=== PATIENT | male | born 1935 | race African-American/Black ===

== ENCOUNTER 2018-10-13 02:09 | Inpatient (IN) | payer MEDICARE, OTHER ==
[~2018-10-13] VITALS: Ht 182.9 cm; Wt 79.4 kg
[2018-10-13 02:52] LABS: BASOPHILS % 0.3 % (0.0-2.0); HEMATOCRIT. 27.8 % (42.0-52.0); HEMOGLOBIN. 9.3 g/dL (14.0-18.0); LYMPHOCYTES % 9.9 % (20.0-50.0); MEAN CORPUSCULAR HEMOGLOBIN 29.7 pg (28.0-32.0); MONOCYTES % 11.3 % (2.0-8.0); NEUTROPHILS % 78.5 % (40.0-76.0); PLATELET 131 x1000/uL (130-400); RED BLOOD CELL COUNT 3.13 mill/uL (4.7-6.1)
[2018-10-13 02:54] LABS: CHLORIDE 110 mEq/L (98-107)
[2018-10-13 02:57] LABS: INR 1.2
[2018-10-13 02:59] LABS: ETHANOL BLOOD < 10 mg/dL
[2018-10-13 03:01] LABS: LDL CHOLESTEROL 47 mg/dL (5-100)
[2018-10-13] MEDS ORDERED: VANCOMYCIN 1 G PREMIX 200 ML IV SCH (03:15)
[2018-10-13] MEDS ORDERED: ASPIRIN 300MG SUPP PR SCH (03:15)
[2018-10-13] MEDS ORDERED: DEXTROSE 50% WATER 50ML SYRINGE IV ONE (03:30)
[2018-10-13] MEDS ORDERED: AZITHROMYCIN 500 MG in DEXT 5% WATER 250 ML IV SCH (03:30)
[2018-10-13] MEDS ORDERED: CEFEPIME 2,000 MG in DEXT 5% WATER 100 ML IV SCH (05:00)
[2018-10-13] MEDS ORDERED: IOHEXOL-350 100 ML BOTTLE ONE (06:25)
[2018-10-13 10:48] VITALS: BP 109/42
[2018-10-13 11:03] VITALS: BP 109/42
[2018-10-13 12:00] VITALS: BP 101/46
[2018-10-13] MEDS ORDERED: CLONIDINE 0.1MG TABLET PO PRN (12:00)
[2018-10-13] MEDS ORDERED: ONDANSETRON HCL 4MG/2ML INJ IV PRN (12:00)
[2018-10-13] MEDS ORDERED: DIPHENHYDRAMINE 50MG/ML VIAL IV PRN (12:00)
[2018-10-13] MEDS ORDERED: AMLO-78 MT (12:08)
[2018-10-13] MEDS ORDERED: ASPI-1159 MT (12:09)
[2018-10-13] MEDS ORDERED: WARF-53 MT (12:20)
[2018-10-13] MEDS ORDERED: WHEA1POW2 PO (12:20)
[2018-10-13] MEDS ORDERED: MULT-1116 MT (12:20)
[2018-10-13] MEDS ORDERED: GABA-529 MT (12:20)
[2018-10-13] MEDS ORDERED: LATA7.5D OP (12:20)
[2018-10-13] MEDS ORDERED: DORZ10DR9 EACHEYE (12:20)
[2018-10-13] MEDS ORDERED: LOVA40TA73 MT (12:20)
[2018-10-13] MEDS ORDERED: DILT30TA3 MT (12:20)
[2018-10-13] MEDS ORDERED: FERR325T6 MT (12:20)
[2018-10-13] MEDS ORDERED: METO-396 MT (12:20)
[2018-10-13] MEDS ORDERED: GLIM2TAB2 MT (12:20)
[2018-10-13] MEDS ORDERED: ENOXAPARIN 40MG/0.4ML SYR SUBCUT SCH (12:30)
[2018-10-13 14:00] VITALS: BP 101/49
[2018-10-13] MEDS: SODIUM CHLORIDE 0.9% INJ 3ML FLUSH IVF SCH ×2 (14:50→21:24)
[2018-10-13 16:00] VITALS: BP 128/70
[2018-10-13 20:00] VITALS: BP 118/55
[2018-10-13] MEDS ORDERED: DEXTROSE 50% WATER 50ML SYRINGE IV PRN (20:00)
[2018-10-13] MEDS: INSULIN LISPRO 100 UNITS/ML SUBCUT SCH (21:00)
[2018-10-13] MEDS: BLOOD SUGAR DIAGNOSTIC STRIP TEST SCH (21:09)
[2018-10-13] MEDS: CEFEPIME 1,000 MG in DEXTROSE 5% WATER 50 ML IV SCH (21:15)
[2018-10-13] MEDS: ENOXAPARIN 80MG/0.8ML SYR SUBCUT SCH (21:16)
[2018-10-13] MEDS: BACLOFEN 10MG TABLET PO SCH (21:16)
[2018-10-13] MEDS: WARFARIN SODIUM 7.5MG TABLET PO SCH (21:17)
[2018-10-13] MEDS: VANCOMYCIN 1 G PREMIX 200 ML IV SCH (21:24)
[2018-10-14] VITALS (9 sets, daily range): BP systolic 105–140; BP diastolic 45–82
[2018-10-14] MEDS: SODIUM CHLORIDE 0.9% INJ 3ML FLUSH IVF SCH ×3 (05:49→22:00)
[2018-10-14] MEDS: BLOOD SUGAR DIAGNOSTIC STRIP TEST SCH ×4 (05:49→21:00)
[2018-10-14] MEDS: INSULIN LISPRO 100 UNITS/ML SUBCUT SCH ×4 (06:59→21:42)
[2018-10-14 07:25] LABS: INR 1.2; PROTHROMBIN TIME 12.2 sec (9.1-11.1)
[2018-10-14] MEDS: CEFEPIME 1,000 MG in DEXTROSE 5% WATER 50 ML IV SCH ×2 (10:09→21:35)
[2018-10-14] MEDS: ENOXAPARIN 80MG/0.8ML SYR SUBCUT SCH ×2 (10:10→21:34)
[2018-10-14] MEDS: ASPIRIN 325MG EC TABLET PO SCH (10:10)
[2018-10-14] MEDS ORDERED: SODIUM CHLORIDE 0.9% 500 ML IV SCH ×2 (10:22→10:30)
[2018-10-14] MEDS: SODIUM CHLORIDE 0.9% 1,000 ML IV SCH (11:15)
[2018-10-14] MEDS: VANCOMYCIN 1 G PREMIX 200 ML IV SCH (17:38)
[2018-10-14] MEDS: WARFARIN SODIUM 7.5MG TABLET PO SCH (18:00)
[2018-10-14] MEDS: BACLOFEN 10MG TABLET PO SCH (21:00)
[2018-10-15] VITALS (13 sets, daily range): BP systolic 99–148; BP diastolic 31–81
[2018-10-15] MEDS: SODIUM CHLORIDE 0.9% 1,000 ML IV SCH ×2 (04:01→07:15)
[2018-10-15] MEDS: SODIUM CHLORIDE 0.9% INJ 3ML FLUSH IVF SCH ×3 (05:27→22:00)
[2018-10-15 06:07] LABS: INR 1.4
[2018-10-15] MEDS: BLOOD SUGAR DIAGNOSTIC STRIP TEST SCH ×4 (07:30→20:51)
[2018-10-15] MEDS: INSULIN LISPRO 100 UNITS/ML SUBCUT SCH ×4 (08:00→20:56)
[2018-10-15] MEDS: CEFEPIME 1,000 MG in DEXTROSE 5% WATER 50 ML IV SCH ×2 (09:32→20:45)
[2018-10-15] MEDS: ASPIRIN 325MG EC TABLET PO SCH (09:32)
[2018-10-15] MEDS: ENOXAPARIN 80MG/0.8ML SYR SUBCUT SCH ×2 (09:37→21:00)
[2018-10-15] MEDS: VANCOMYCIN 750 MG PREMIX 150 ML IV SCH ×2 (13:26→21:30)
[2018-10-15 14:05] LABS: HEMATOCRIT 26.6 % (42.0-52.0); HEMOGLOBIN 8.7 g/dL (14.0-18.0); MEAN CORPUSCULAR HEMOGLOBIN 29.1 pg (28.0-32.0); MEAN CORPUSCULAR VOLUME 88.9 fL (80.0-94.0); PLATELET 125 x1000/uL (130-400); RED CELL DISTRIBUTION WIDTH 14.9 % (11.6-14.6)
[2018-10-15 14:16] LABS: CHLORIDE 112 mEq/L (98-107)
[2018-10-15] MEDS: SODIUM CHLORIDE 0.45% 1,000 ML IV SCH ×2 (14:45→20:45)
[2018-10-15 15:20] LABS: BG BASE EXCESS -3.6 mmol/L (-2.0-2.0); BG CARBOXYHEMOGLOBIN 0.5 % (0.5-1.5); BG FRACTION INSPIRED OXYGEN 21; BG HCO3 ACT 19.3 mmol/L (22.0-26.0); BG METHEMOGLOBIN 0.4 % (0.0-1.5); BG OXYHEMOGLOBIN 97.1 % (94.0-97.0); BG PCO2 27.7 mmHg (35.0-45.0); BG PH 7.462 (7.350-7.450); BG PO2 109.4 mmHg (75.0-100.0); BG SAMPLE SITE RIGHT RADIAL; BG TOTAL HEMOGLOBIN 9.2 g/dL (12.0-18.0); BG VENT MODE ROOM AIR
[2018-10-15] MEDS: WARFARIN SODIUM 7.5MG TABLET PO SCH ×3 (18:00→19:13)
[2018-10-16] VITALS (11 sets, daily range): BP systolic 100–133; BP diastolic 42–79
[2018-10-16] MEDS: SODIUM CHLORIDE 0.9% INJ 3ML FLUSH IVF SCH ×3 (06:00→22:38)
[2018-10-16] MEDS: BLOOD SUGAR DIAGNOSTIC STRIP TEST SCH ×4 (07:30→21:00)
[2018-10-16] MEDS: INSULIN LISPRO 100 UNITS/ML SUBCUT SCH ×4 (08:00→22:48)
[2018-10-16 09:14] LABS: HEMATOCRIT 27.3 % (42.0-52.0); HEMOGLOBIN 8.7 g/dL (14.0-18.0); MEAN CORPUSCULAR HEMOGLOBIN 28.6 pg (28.0-32.0); MEAN CORPUSCULAR VOLUME 89.6 fL (80.0-94.0); PLATELET 136 x1000/uL (130-400); RED BLOOD CELL COUNT 3.04 mill/uL (4.7-6.1); RED CELL DISTRIBUTION WIDTH 14.6 % (11.6-14.6)
[2018-10-16] MEDS: VANCOMYCIN 750 MG PREMIX 150 ML IV SCH ×2 (10:33→22:38)
[2018-10-16] MEDS: CEFEPIME 1,000 MG in DEXTROSE 5% WATER 50 ML IV SCH (10:33)
[2018-10-16] MEDS: ACETAMINOPHEN 325MG TABLET PO PRN (10:33)
[2018-10-16] MEDS: ASPIRIN 81MG TABLET PO SCH (10:33)
[2018-10-16] MEDS: DOCUSATE SODIUM 100MG CAPSULE PO PRN (10:33)
[2018-10-16] MEDS: ENOXAPARIN 80MG/0.8ML SYR SUBCUT SCH ×2 (10:37→22:38)
[2018-10-16 12:40] LABS: INR 1.7; PROTHROMBIN TIME 16.6 sec (9.1-11.1)
[2018-10-16] MEDS ORDERED: CEFTRIAXONE 2 G in DEXTROSE 5% WATER 50 ML IV SCH (15:00)
[2018-10-16] MEDS: CEFTRIAXONE 2 G in DEXTROSE 5% WATER 50 ML IV SCH (17:00)
[2018-10-16] MEDS: SODIUM CHLORIDE 0.45% 1,000 ML IV SCH (17:25)
[2018-10-16] MEDS ORDERED: WARFARIN SODIUM 3MG TABLET PO SCH (18:00)
[2018-10-17] VITALS (13 sets, daily range): BP systolic 97–116; BP diastolic 41–58
[2018-10-17 05:52] LABS: MEAN CORPUSCULAR HEMOGLOBIN 28.6 pg (28.0-32.0); MEAN CORPUSCULAR VOLUME 88.5 fL (80.0-94.0); MEAN PLATELET VOLUME 7.2 fl (7.4-10.4); PLATELET 159 x1000/uL (130-400); RED BLOOD CELL COUNT 2.38 mill/uL (4.7-6.1); RED CELL DISTRIBUTION WIDTH 14.8 % (11.6-14.6)
[2018-10-17 05:59] LABS: PROTHROMBIN TIME 20.3 sec (9.1-11.1)
[2018-10-17 06:18] LABS: CHLORIDE 108 mEq/L (98-107)
[2018-10-17 06:34] LABS: CREATINE KINASE 43 IU/L (39-308)
[2018-10-17] MEDS: SODIUM CHLORIDE 0.9% INJ 3ML FLUSH IVF SCH ×3 (06:37→21:27)
[2018-10-17] MEDS: INSULIN LISPRO 100 UNITS/ML SUBCUT SCH ×4 (06:38→21:00)
[2018-10-17] MEDS: BLOOD SUGAR DIAGNOSTIC STRIP TEST SCH ×4 (06:38→21:00)
[2018-10-17] MEDS: SODIUM CHLORIDE 0.45% 1,000 ML IV SCH ×2 (06:38→21:22)
[2018-10-17 06:47] LABS: HEMOGLOBIN. 6.8 g/dL (14.0-18.0)
[2018-10-17 07:41] LABS: BG BASE EXCESS -4.9 mmol/L (-2.0-2.0); BG CARBOXYHEMOGLOBIN 0.6 % (0.5-1.5); BG DEOXYHEMOGLOBIN 2.6 % (0.0-5.0); BG FRACTION INSPIRED OXYGEN 21; BG HCO3 ACT 18.7 mmol/L (22.0-26.0); BG OXYGEN SATURATION 97.4 % (92.0-98.5); BG OXYHEMOGLOBIN 96.8 % (94.0-97.0); BG PCO2 28.5 mmHg (35.0-45.0); BG PH 7.434 (7.350-7.450); BG PO2 95.2 mmHg (75.0-100.0); BG SAMPLE SITE RIGHT BRACHIAL; BG TOTAL HEMOGLOBIN 7.9 g/dL (12.0-18.0); BG VENT MODE ROOM AIR
[2018-10-17] MEDS: ASPIRIN 81MG TABLET PO SCH (09:00)
[2018-10-17] MEDS: ENOXAPARIN 80MG/0.8ML SYR SUBCUT SCH (09:00)
[2018-10-17] MEDS: VANCOMYCIN 750 MG PREMIX 150 ML IV SCH (09:43)
[2018-10-17] MEDS ORDERED: PHYTONADIONE 1MG/0.5ML AMP SUBCUT NR (13:00)
[2018-10-17 13:23] LABS: PLATELET ESTIMATE NORMAL
[2018-10-17 15:21] LABS: INR 2.1; PROTHROMBIN TIME 20.8 sec (9.1-11.1)
[2018-10-17] MEDS: METRONIDAZOLE 500 MG PREMIX 100 ML IV SCH (16:40)
[2018-10-17] MEDS ORDERED: CHLORPROMAZINE HCL 25 MG TABLET PO NR (17:30)
[2018-10-17 17:43] LABS: CLARITY URINE TURBID (CLEAR); COLOR URINE YELLOW (YELLOW); KETONES URINE TRACE (NEGATIVE); LEUKOCYTE ESTERASE URINE NEGATIVE (NEGATIVE); NITRITE URINE NEGATIVE (NEGATIVE); OCCULT BLOOD URINE 2+ (NEGATIVE); PROTEIN URINE 1+ (NEGATIVE); SPECIFIC GRAVITY URINE 1.016 (1.005-1.030)
[2018-10-17] MEDS: CEFTRIAXONE 2 G in DEXTROSE 5% WATER 50 ML IV SCH (17:57)
[2018-10-17] MEDS: PANTOPRAZOLE SODIUM 40 MG/VIAL IV SCH (21:21)
[2018-10-17 23:33] LABS: HEMATOCRIT 25.3 % (42.0-52.0); HEMOGLOBIN 8.4 g/dL (14.0-18.0)
[2018-10-18] VITALS (13 sets, daily range): BP systolic 91–117; BP diastolic 43–67
[2018-10-18] MEDS: METRONIDAZOLE 500 MG PREMIX 100 ML IV SCH ×2 (05:27→17:40)
[2018-10-18] MEDS: SODIUM CHLORIDE 0.9% INJ 3ML FLUSH IVF SCH ×3 (05:27→21:02)
[2018-10-18 06:30] LABS: HEMATOCRIT. 25.6 % (42.0-52.0); HEMOGLOBIN. 8.5 g/dL (14.0-18.0); MEAN CORPUSCULAR HEMOGLOBIN 29.4 pg (28.0-32.0); MEAN CORPUSCULAR VOLUME 89.1 fL (80.0-94.0); MEAN PLATELET VOLUME 7.6 fl (7.4-10.4); PLATELET 147 x1000/uL (130-400); RED BLOOD CELL COUNT 2.88 mill/uL (4.7-6.1); RED CELL DISTRIBUTION WIDTH 14.8 % (11.6-14.6)
[2018-10-18 06:38] LABS: INR 1.9; PARTIAL THROMBOPLASTIN TIME 43.6 sec (23.4-31.0); PROTHROMBIN TIME 19.1 sec (9.1-11.1)
[2018-10-18] MEDS: BLOOD SUGAR DIAGNOSTIC STRIP TEST SCH ×4 (07:30→20:13)
[2018-10-18 07:49] LABS: FOLIC ACID (FOLATE) SERUM 15.5 ng/mL (>5.38)
[2018-10-18] MEDS: INSULIN LISPRO 100 UNITS/ML SUBCUT SCH ×4 (08:00→20:14)
[2018-10-18] MEDS: SODIUM CHLORIDE 0.45% 1,000 ML IV SCH ×2 (09:58→22:18)
[2018-10-18] MEDS: DOCUSATE SODIUM 250MG CAPSULE PO SCH (09:58)
[2018-10-18] MEDS: PANTOPRAZOLE SODIUM 40 MG/VIAL IV SCH ×2 (09:58→20:13)
[2018-10-18 12:37] LABS: PLATELET ESTIMATE NORMAL
[2018-10-18] MEDS ORDERED: FERROUS SULFATE 325MG TABLET PO SCH (13:00)
[2018-10-18] MEDS: CEFTRIAXONE 2 G in DEXTROSE 5% WATER 50 ML IV SCH (16:34)
[2018-10-18] MEDS: DOCUSATE SODIUM 100MG CAPSULE PO PRN (20:14)
[2018-10-19] VITALS (12 sets, daily range): BP systolic 107–123; BP diastolic 45–63
[2018-10-19] MEDS: METRONIDAZOLE 500 MG PREMIX 100 ML IV SCH ×2 (05:17→17:41)
[2018-10-19 06:25] LABS: INR 1.9; PROTHROMBIN TIME 18.7 sec (9.1-11.1)
[2018-10-19 06:26] LABS: HEMATOCRIT 25.5 % (42.0-52.0); HEMOGLOBIN 8.3 g/dL (14.0-18.0); MEAN CORPUSCULAR VOLUME 88.9 fL (80.0-94.0); PLATELET 155 x1000/uL (130-400); RED BLOOD CELL COUNT 2.87 mill/uL (4.7-6.1); RED CELL DISTRIBUTION WIDTH 14.7 % (11.6-14.6)
[2018-10-19] MEDS: INSULIN LISPRO 100 UNITS/ML SUBCUT SCH ×4 (07:50→21:15)
[2018-10-19] MEDS: BLOOD SUGAR DIAGNOSTIC STRIP TEST SCH ×4 (07:50→21:01)
[2018-10-19] MEDS: PANTOPRAZOLE SODIUM 40 MG/VIAL IV SCH ×2 (08:53→21:01)
[2018-10-19] MEDS: DOCUSATE SODIUM 250MG CAPSULE PO SCH ×2 (08:53→17:11)
[2018-10-19] MEDS: SODIUM CHLORIDE 0.45% 1,000 ML IV SCH (11:58)
[2018-10-19] MEDS ORDERED: BISACODYL 10MG SUPP PR PRN (12:00)
[2018-10-19] MEDS: SODIUM CHLORIDE 0.9% INJ 3ML FLUSH IVF SCH ×2 (13:06→21:02)
[2018-10-19] MEDS: ACETAMINOPHEN 325MG TABLET PO PRN (14:25)
[2018-10-19] MEDS: CEFTRIAXONE 2 G in DEXTROSE 5% WATER 50 ML IV SCH (17:11)
[2018-10-20] VITALS (12 sets, daily range): BP systolic 109–133; BP diastolic 50–82
[2018-10-20] MEDS: SODIUM CHLORIDE 0.45% 1,000 ML IV SCH ×2 (01:20→14:45)
[2018-10-20] MEDS: MAGNESIUM/ALUMINUM HYDROXIDE/SIMETHICONE 30ML UDC PO PRN ×2 (01:20→22:15)
[2018-10-20] MEDS: METRONIDAZOLE 500 MG PREMIX 100 ML IV SCH ×2 (04:31→17:59)
[2018-10-20] MEDS: SODIUM CHLORIDE 0.9% INJ 3ML FLUSH IVF SCH ×3 (05:18→22:15)
[2018-10-20 07:30] LABS: INR 1.8
[2018-10-20 07:31] LABS: BASOPHILS % 0.6 % (0.0-2.0); HEMATOCRIT. 24.8 % (42.0-52.0); HEMOGLOBIN. 8.2 g/dL (14.0-18.0); LYMPHOCYTES % 9.1 % (20.0-50.0); MEAN CORPUSCULAR VOLUME 88.2 fL (80.0-94.0); MEAN PLATELET VOLUME 7.1 fl (7.4-10.4); NEUTROPHILS % 83.3 % (40.0-76.0); PLATELET 158 x1000/uL (130-400); RED BLOOD CELL COUNT 2.82 mill/uL (4.7-6.1); RED CELL DISTRIBUTION WIDTH 14.8 % (11.6-14.6)
[2018-10-20 07:35] LABS: CHLORIDE 112 mEq/L (98-107)
[2018-10-20] MEDS: INSULIN LISPRO 100 UNITS/ML SUBCUT SCH ×4 (08:00→20:56)
[2018-10-20] MEDS: BLOOD SUGAR DIAGNOSTIC STRIP TEST SCH ×4 (08:24→20:49)
[2018-10-20] MEDS: DOCUSATE SODIUM 250MG CAPSULE PO SCH ×2 (09:20→17:58)
[2018-10-20] MEDS: PANTOPRAZOLE SODIUM 40 MG/VIAL IV SCH ×2 (09:20→20:49)
[2018-10-20] MEDS: CEFTRIAXONE 2 G in DEXTROSE 5% WATER 50 ML IV SCH (17:59)
[2018-10-21] VITALS (12 sets, daily range): BP systolic 119–156; BP diastolic 51–100
[2018-10-21] MEDS: SODIUM CHLORIDE 0.45% 1,000 ML IV SCH ×2 (03:11→18:16)
[2018-10-21 05:36] LABS: INR 1.7; PROTHROMBIN TIME 17.3 sec (9.1-11.1)
[2018-10-21] MEDS: SODIUM CHLORIDE 0.9% INJ 3ML FLUSH IVF SCH ×3 (06:02→21:44)
[2018-10-21] MEDS: METRONIDAZOLE 500 MG PREMIX 100 ML IV SCH (06:02)
[2018-10-21] MEDS: INSULIN LISPRO 100 UNITS/ML SUBCUT SCH ×4 (08:00→20:26)
[2018-10-21] MEDS: BLOOD SUGAR DIAGNOSTIC STRIP TEST SCH ×4 (08:04→20:25)
[2018-10-21] MEDS: PANTOPRAZOLE SODIUM 40 MG/VIAL IV SCH ×2 (08:38→21:43)
[2018-10-21] MEDS: DOCUSATE SODIUM 250MG CAPSULE PO SCH ×2 (08:38→16:39)
[2018-10-21 12:54] LABS: HEMATOCRIT 28.9 % (42.0-52.0); HEMOGLOBIN 9.3 g/dL (14.0-18.0); PLATELET 160 x1000/uL (130-400); RED BLOOD CELL COUNT 3.21 mill/uL (4.7-6.1); RED CELL DISTRIBUTION WIDTH 15.2 % (11.6-14.6)
[2018-10-21 13:00] LABS: CHLORIDE 112 mEq/L (98-107)
[2018-10-21] MEDS: CEFTRIAXONE 2 G in DEXTROSE 5% WATER 50 ML IV SCH (16:39)
[2018-10-21] MEDS: METOPROLOL TARTRATE 25MG TABLET PO SCH (21:00)
[2018-10-21] MEDS: METRONIDAZOLE 500MG TABLET PO SCH (21:43)
[2018-10-22] VITALS (12 sets, daily range): BP systolic 122–152; BP diastolic 53–78
[2018-10-22] MEDS: SODIUM CHLORIDE 0.45% 1,000 ML IV SCH (06:10)
[2018-10-22] MEDS: SODIUM CHLORIDE 0.9% INJ 3ML FLUSH IVF SCH ×3 (06:10→21:01)
[2018-10-22] MEDS: INSULIN LISPRO 100 UNITS/ML SUBCUT SCH ×4 (07:41→21:00)
[2018-10-22] MEDS: BLOOD SUGAR DIAGNOSTIC STRIP TEST SCH ×4 (07:41→21:00)
[2018-10-22] MEDS: METRONIDAZOLE 500MG TABLET PO SCH ×2 (08:39→21:00)
[2018-10-22] MEDS: PANTOPRAZOLE SODIUM 40 MG/VIAL IV SCH ×2 (08:39→21:00)
[2018-10-22] MEDS: DOCUSATE SODIUM 250MG CAPSULE PO SCH ×2 (08:39→17:09)
[2018-10-22] MEDS: METOPROLOL TARTRATE 25MG TABLET PO SCH (08:40)
[2018-10-22 09:53] LABS: BASOPHILS % 0.7 % (0.0-2.0); EOSINOPHILS % 1.8 % (0.0-5.0); LYMPHOCYTES % 12.4 % (20.0-50.0); MEAN CORPUSCULAR HEMOGLOBIN 28.8 pg (28.0-32.0); MEAN CORPUSCULAR VOLUME 88.6 fL (80.0-94.0); MEAN PLATELET VOLUME 6.5 fl (7.4-10.4); MONOCYTES % 8.1 % (2.0-8.0); PLATELET 161 x1000/uL (130-400); RED BLOOD CELL COUNT 3.29 mill/uL (4.7-6.1); RED CELL DISTRIBUTION WIDTH 15.2 % (11.6-14.6)
[2018-10-22 09:59] LABS: INR 1.8; PROTHROMBIN TIME 17.5 sec (9.1-11.1)
[2018-10-22 10:25] LABS: HEMATOCRIT. 29.2 % (42.0-52.0); HEMOGLOBIN. 9.5 g/dL (14.0-18.0)
[2018-10-22] MEDS: APIXABAN 2.5 MG TABLET PO SCH ×2 (11:13→21:00)
[2018-10-22] MEDS: ASPIRIN 81MG EC TABLET PO SCH (11:46)
[2018-10-22] MEDS ORDERED: HYDRALAZINE 20MG/ML VIAL IV PRN (12:00)
[2018-10-22] MEDS ORDERED: LACTULOSE 20G/30ML UDC PO SCH (12:00)
[2018-10-22] MEDS: CEFTRIAXONE 2 G in DEXTROSE 5% WATER 50 ML IV SCH (18:16)
[2018-10-23] VITALS (12 sets, daily range): BP systolic 113–156; BP diastolic 54–72
[2018-10-23] MEDS: SODIUM CHLORIDE 0.45% 1,000 ML IV SCH (02:57)
[2018-10-23] MEDS: SODIUM CHLORIDE 0.9% INJ 3ML FLUSH IVF SCH ×3 (05:17→21:31)
[2018-10-23 05:59] LABS: HEMATOCRIT 31.4 % (42.0-52.0); HEMOGLOBIN 10.2 g/dL (14.0-18.0); MEAN CORPUSCULAR VOLUME 88.9 fL (80.0-94.0); PLATELET 148 x1000/uL (130-400); RED BLOOD CELL COUNT 3.53 mill/uL (4.7-6.1); RED CELL DISTRIBUTION WIDTH 15.2 % (11.6-14.6)
[2018-10-23] MEDS: INSULIN LISPRO 100 UNITS/ML SUBCUT SCH ×4 (08:00→21:00)
[2018-10-23] MEDS: BLOOD SUGAR DIAGNOSTIC STRIP TEST SCH ×4 (08:06→21:29)
[2018-10-23] MEDS: METRONIDAZOLE 500MG TABLET PO SCH ×2 (09:17→21:29)
[2018-10-23] MEDS: PANTOPRAZOLE SODIUM 40 MG/VIAL IV SCH ×2 (09:17→21:29)
[2018-10-23] MEDS: ASPIRIN 81MG EC TABLET PO SCH (09:17)
[2018-10-23] MEDS: APIXABAN 2.5 MG TABLET PO SCH ×2 (09:17→17:03)
[2018-10-23] MEDS: DOCUSATE SODIUM 250MG CAPSULE PO SCH ×2 (09:18→17:03)
[2018-10-23] MEDS: CEFTRIAXONE 2 G in DEXTROSE 5% WATER 50 ML IV SCH (17:03)
[2018-10-24] VITALS (11 sets, daily range): BP systolic 116–173; BP diastolic 58–85
[2018-10-24 05:35] LABS: HEMATOCRIT 26.8 % (42.0-52.0); HEMOGLOBIN 8.7 g/dL (14.0-18.0); MEAN CORPUSCULAR HEMOGLOBIN 28.8 pg (28.0-32.0); MEAN CORPUSCULAR VOLUME 88.1 fL (80.0-94.0); PLATELET 152 x1000/uL (130-400); RED BLOOD CELL COUNT 3.04 mill/uL (4.7-6.1); RED CELL DISTRIBUTION WIDTH 15.3 % (11.6-14.6)
[2018-10-24] MEDS: SODIUM CHLORIDE 0.45% 1,000 ML IV SCH (05:53)
[2018-10-24] MEDS: SODIUM CHLORIDE 0.9% INJ 3ML FLUSH IVF SCH ×2 (05:55→13:41)
[2018-10-24] MEDS: BLOOD SUGAR DIAGNOSTIC STRIP TEST SCH ×3 (07:59→16:45)
[2018-10-24] MEDS: INSULIN LISPRO 100 UNITS/ML SUBCUT SCH ×2 (07:59→13:00)
[2018-10-24] MEDS: ASPIRIN 81MG EC TABLET PO SCH (08:52)
[2018-10-24] MEDS: DOCUSATE SODIUM 250MG CAPSULE PO SCH ×2 (08:52→16:22)
[2018-10-24] MEDS: APIXABAN 2.5 MG TABLET PO SCH ×2 (08:52→16:22)
[2018-10-24] MEDS: METRONIDAZOLE 500MG TABLET PO SCH (08:52)
[2018-10-24] MEDS: PANTOPRAZOLE SODIUM 40 MG/VIAL IV SCH (08:52)
[2018-10-24 13:20] LABS: HEMATOCRIT 26.6 % (42.0-52.0); HEMOGLOBIN 8.8 g/dL (14.0-18.0)
[2018-10-24] MEDS: CEFTRIAXONE 2 G in DEXTROSE 5% WATER 50 ML IV SCH (16:22)
[2018-10-24] MEDS ORDERED: AMLODIPINE 5MG TABLET PO SCH (21:00)
== END 2018-10-24 19:12 | disposition home health service (06) | DRG 871 ==
LOC: ER 02:09 → EDBEDREQ 05:10 → EDBEDREQSVC 05:10 → ENRESERV 08:52 → 8WST 08:52 → 5EST 10-14 11:24
PROVIDERS: ADMIT Internal Medicine; ATTEND Internal Medicine
PROC: 4A00X4Z Measurement of Central Nervous Electrical Activity, External Approach (ICD-10-PCS; principal; 2018-10-15)
PROC: 30233N1 Transfusion of Nonautologous Red Blood Cells into Peripheral Vein, Percutaneous Approach (ICD-10-PCS; 2018-10-17)
PROC: 02HV33Z Insertion of Infusion Device into Superior Vena Cava, Percutaneous Approach (ICD-10-PCS; 2018-10-17)
PROC: B548ZZA Ultrasonography of Superior Vena Cava, Guidance (ICD-10-PCS; 2018-10-17)
DX: A40.8 Other streptococcal sepsis (principal); G93.41 Metabolic encephalopathy; E43 Unspecified severe protein-calorie malnutrition; I50.33 Acute on chronic diastolic (congestive) heart failure; J18.1 Lobar pneumonia, unspecified organism; I63.9 Cerebral infarction, unspecified; D68.9 Coagulation defect, unspecified; I69.354 Hemiplegia and hemiparesis following cerebral infarction affecting left non-dominant side; N17.9 Acute kidney failure, unspecified; J98.11 Atelectasis; K80.00 Calculus of gallbladder with acute cholecystitis without obstruction; E11.40 Type 2 diabetes mellitus with diabetic neuropathy, unspecified; D63.8 Anemia in other chronic diseases classified elsewhere; E78.5 Hyperlipidemia, unspecified; E86.0 Dehydration; D50.9 Iron deficiency anemia, unspecified; N40.0 Benign prostatic hyperplasia without lower urinary tract symptoms; I11.0 Hypertensive heart disease with heart failure; I48.0 Paroxysmal atrial fibrillation; I65.21 Occlusion and stenosis of right carotid artery; R13.10 Dysphagia, unspecified; R47.02 Dysphasia; I69.320 Aphasia following cerebral infarction; Z22.322 Carrier or suspected carrier of Methicillin resistant Staphylococcus aureus; Z79.01 Long term (current) use of anticoagulants; Z95.2 Presence of prosthetic heart valve; Z68.23 Body mass index [BMI] 23.0-23.9, adult; Z88.8 Allergy status to other drugs, medicaments and biological substances; Z87.81 Personal history of (healed) traumatic fracture
CPT/HCPCS: 36415; 36569; 36600; 70360; 70496; 70551; 71045; 74176; 76700; 76770; 76937; 78227; 80048; 80061; 80076; 80202; 82270; 82375; 82550; 82607; 82728; 82746; 82805; 82962; 83036; 83540; 83550; 83605; 83721; 83735; 83880; 84153; 84443; 84484; 84550; 85014; 85018; 85027; 85044; 85651; 86140; 86850; 86900; 86920; 87077; 87186; 87804; 92610; 93005; 93306; 93880; 93970; 96365; 96366; 96367; 96375; 97163; 97164; 97166; 97530; 97535; 99291; A6261; A9537; C1725; C9113; G0482; J0456; J0692; J0696; J1650; J1815; J3370; J3430; J3490; J7030; J7040; J7050; J7060; P9016; Q0161; Q9967; A4315; G0103